=== PATIENT | female | born 1990 | race Caucasian/White ===

== ENCOUNTER 2017-02-22 10:38 | Emergency (ER) | payer OTHER ==
[2017-02-22 11:43] LABS: Basophils % (Auto) 0.3 % (0.0-1.8); Eosinophils % (Auto) 0.2 % (0.0-4.3); Hematocrit 42.3 % (30.3-42.9); Hemoglobin 14.3 gm/dl (10.1-14.3); Mean Corpuscular HGB Conc 34 % (30-34); Mean Corpuscular Hemoglobin 29 pg (28-32); Mean Corpuscular Volume 86 fl (79-97); Platelet Count 167 K/mm3 (140-440); Red Blood Count 4.94 M/mm3 (3.65-5.03); Red Cell Distribution Width 13.8 % (13.2-15.2); White Blood Count 9.5 K/mm3 (4.5-11.0)
[2017-02-22 12:37] LABS: Bacteria,Urine 1+ /HPF (Negative); Bilirubin,Urine NEG (Negative); Blood,Urine NEG (Negative); Ketones,Urine TR mg/dL (Negative); Leukocyte Esterase,Urine NEG (Negative); Mucus,Urine FEW /HPF; Nitrite,Urine NEG (Negative); Protein,Urine <15 mg/dL mg/dL (Negative); Urobilinogen,Urine < 2.0 mg/dL (<2.0); WBC,Urine < 1.0 /HPF (0.0-6.0)
[2017-02-22] MEDS ORDERED: ZOFRAN ODT PO ONE (17:42)
[2017-02-22] MEDS ORDERED: ZOFRAN ODT ONE (17:45)
--- NOTE | 2017-02-22 19:46 | Emergency Department Report ---
HPI - General Chief Complaint: Vaginal Bleeding Time Seen by Provider: 02/22/17 19:27 - HPI HPI: Room 26 The pt is a 26 y/o F p/w a CC of Vag bleeding. The pt states she has a positive home UPT approx 2 months ago. Pt has not seen an escrow manager yet. Today the pt developed SP pain and light vaginal bleeding. pt denies other complaints ED Past Medical Hx - Past Medical History Hx Asthma: Yes (as a child) - Surgical History Additional Surgical History: C SECTION - Family History Family history: no significant - Social History Smoking Status: Current Some Day Smoker (rare) Substance Use Type: Alcohol (occ) - Medications Home Medications: Home Medications Medication Instructions Recorded Confirmed Last Taken Type Ferrous Sulfate [Feosol 325 MG tab] 325 mg PO BID #30 tablet 04/11/16 Unknown Rx Ibuprofen [Motrin 800 MG tab] 800 mg PO Q8HR PRN #30 tablet 04/11/16 Unknown Rx oxyCODONE /ACETAMINOPHEN [Percocet 1 tab PO Q6HR PRN #30 tablet 04/11/16 Unknown Rx 5/325] Ondansetron [Zofran ODT TAB] 8 mg PO Q8HR #30 tab.rapdis 02/22/17 Unknown Rx ED Review of Systems ROS: Stated complaint: ABNORMAL VAG BLEEDING Other details as noted in HPI Comment: All other systems reviewed and negative Constitutional: denies: chills, fever Eyes: denies: eye pain, eye discharge, vision change ENT: denies: ear pain, throat pain Respiratory: denies: cough, shortness of breath, wheezing Cardiovascular: denies: chest pain, palpitations Endocrine: no symptoms reported Gastrointestinal: abdominal pain. denies: nausea, vomiting Genitourinary: abnormal menses Musculoskeletal: denies: back pain, joint swelling, arthralgia Skin: denies: rash, lesions Neurological: denies: headache, weakness, paresthesias Psychiatric: denies: anxiety, depression Hematological/Lymphatic: denies: easy bleeding, easy bruising Physical Exam - Physical Exam Vital Signs: Vital Signs 02/22/17 02/22/17 02/22/17 11:08 15:42 17:45 Temperature 98 F 98.4 F Pulse Rate 82 78 74 Respiratory 18 16 18 Rate Blood Pressure 97/65 102/69 110/74 O2 Sat by Pulse 100 99 100 Oximetry Physical Exam: GEN: WD, WN M lying on stretcher not appearing to be in acute distress. HEENT: normocephalic, atraumatic PULM: CTA B CV: rrr, no m/r/g ABD: s, nd, mild discomfort to palp in the FLAVIO region. No ttp in lower abd Neuro: GCS 15 Ext: no deformity ED Course Vital Signs 02/22/17 02/22/17 02/22/17 11:08 15:42 17:45 Temperature 98 F 98.4 F Pulse Rate 82 78 74 Respiratory 18 16 18 Rate Blood Pressure 97/65 102/69 110/74 O2 Sat by Pulse 100 99 100 Oximetry ED Medical Decision Making - Lab Data Result diagrams: 02/22/17 11:13 Laboratory Tests 02/22/17 02/22/17 02/22/17 11:13 11:13 11:22 WBC 9.5 RBC 4.94 Hgb 14.3 Hct 42.3 MCV 86 MCH 29 MCHC 34 RDW 13.8 Plt Count 167 Lymph % (Auto) 16.1 [place] % (Auto) 7.2 Eos % (Auto) 0.2 Baso % (Auto) 0.3 Lymph # 1.5 [place] # 0.7 Eos # 0.0 Baso # 0.0 Seg Neutrophils % 76.2 H Seg Neutrophils # 7.2 HCG, Quant 75804 H Urine Color Urine Turbidity Urine pH Ur Specific [place] Urine Protein Urine Glucose (UA) Urine Ketones Urine Blood Urine Nitrite Urine Bilirubin Urine Urobilinogen Ur Leukocyte Esterase Urine WBC (Auto) Urine RBC (Auto) U Epithel Cells (Auto) Urine Bacteria (Auto) Urine Mucus Blood Type O POSITIVE Antibody Screen Negative 02/22/17 02/22/17 12:15 18:16 WBC RBC Hgb Hct MCV MCH MCHC RDW Plt Count Lymph % (Auto) [place] % (Auto) Eos % (Auto) Baso % (Auto) Lymph # [place] # Eos # Baso # Seg Neutrophils % Seg Neutrophils # HCG, Quant Urine Color Yellow Urine Turbidity Clear Urine pH 6.0 Ur Specific [place] 1.010 Urine Protein <15 mg/dl Urine Glucose (UA) Neg Urine Ketones Tr Urine Blood Neg Urine Nitrite Neg Urine Bilirubin Neg Urine Urobilinogen < 2.0 Ur Leukocyte Esterase Neg Urine WBC (Auto) < 1.0 Urine RBC (Auto) 1.0 U Epithel Cells (Auto) 2.0 Urine Bacteria (Auto) 1+ Urine Mucus Few Blood Type O POSITIVE Antibody Screen Negative - Radiology Data Radiology results: report reviewed (pelvic u/s), image reviewed (pelvic u/s) pelvic u/s (read by rad)- single IUP at 6w 2d - Differential Diagnosis threatened , ectopic preg, spont Critical care attestation.: If time is entered above; I have spent that time in minutes in the direct care of this critically ill patient, excluding procedure time. ED Disposition Clinical Impression: Threatened Disposition: DC- TO HOME OR SELFCARE Is pt being admited?: No Does the pt Need Aspirin: No Condition: Stable Instructions: Threatened Miscarriage (ED) Prescriptions: Ondansetron [Zofran ODT TAB] 8 mg PO Q8HR #30 tab.rapdis Referrals: PRIMARY CARE, [Primary Care Provider] - 3-5 Days NURYS CHIN MD [Staff Physician] - INDY (Dr Chin is an Network Services Project Manager. please follow up with him for further evaluation) Time of Disposition: 21:20
--- NOTE | 2017-02-22 21:05 | Ultrasound Report ---
FINAL REPORT PROCEDURE: US OB \T\lt; = 14 WEEKS FETUS TECHNIQUE: Real-time transabdominal sonography of the uterus, placenta, amniotic fluid, adnexa, and fetus was performed with image documentation. Measurements were obtained to determine age/size. M-mode Doppler was used to document heartbeat. CPT 49058 HISTORY: vaginal bleeding COMPARISON: No prior studies are available for comparison. FINDINGS: CRL: 5.5 mm, which corresponds to a gestational age of: 6 weeks, 2 days. Yolk Sac: Normal. Embryonic Cardiac Activity: 123 beats per minute Gestational Sac: There is a small 2-3 millimeter hypoechoic area adjacent to the gestational sac, which may be a tiny subchorionic hemorrhage. Amniotic fluid: Normal. Right Ovary: Normal. Left Ovary: Normal. Estimated delivery date: 10/16/2017 IMPRESSION: Single live intrauterine gestation at approximately 6 weeks 2 days. EDC by US 10/16/2017
--- NOTE | 2017-02-22 21:27 | Ultrasound Report ---
FINAL REPORT PROCEDURE: US OB TRANSVAGINAL TECHNIQUE: Real-time transvaginal sonography of the uterus, placenta, amniotic fluid, adnexa, and fetus was performed with image documentation. Measurements were obtained to determine age/size. M-mode Doppler was used to document heartbeat. CPT 84989 HISTORY: vaginal bleeding COMPARISON: No prior studies are available for comparison. FINDINGS: CRL: 5.5mm, which corresponds to a gestational age of: 6weeks, 2 days. Yolk Sac: Normal. Embryonic Cardiac Activity: 123 beats per minute Gestational Sac: Crescentic 2 millimeter hypoechoic area adjacent to the gestational sac is likely a small subchorionic hemorrhage Right Ovary: Normal. Left Ovary: Normal. Estimated delivery date: 10/16/2017 Comment: Complete anatomic survey at 18-20 weeks suggested. IMPRESSION: 1. Single living intrauterine gestation at approximately 6 weeks 2 days 2. EDC by US 10/16/2017.
[2017-02-22 21:57] VITALS: BP 118/74
== END 2017-02-22 21:57 | disposition home or self-care (01) ==
LOC: ED 10:38
DX: O20.0 Threatened abortion (principal); F17.200 Nicotine dependence, unspecified, uncomplicated; J45.909 Unspecified asthma, uncomplicated
CPT/HCPCS: 36415; 76801; 76817; 81001; 84702; 85025; 86850; 86900; 86901; Q0162

== ENCOUNTER 2017-05-05 16:39 | Emergency (ER) | payer OTHER ==
[2017-05-05 17:38] LABS: Hematocrit 34.6 % (30.3-42.9); Hemoglobin 11.9 gm/dl (10.1-14.3); Mean Corpuscular HGB Conc 35 % (30-34); Mean Corpuscular Hemoglobin 29 pg (28-32); Mean Corpuscular Volume 85 fl (79-97); Platelet Count 264 K/mm3 (140-440); Red Blood Count 4.09 M/mm3 (3.65-5.03); Red Cell Distribution Width 13.2 % (13.2-15.2); White Blood Count 16.5 K/mm3 (4.5-11.0)
[2017-05-05 17:57] LABS: Alanine Aminotransferase 10 units/L (7-56); Albumin 3.2 g/dL (3.9-5); Alkaline Phosphatase 103 units/L (35-129); Anion Gap 17 mmol/L; BUN/Creatinine Ratio 13; Blood Urea Nitrogen 4 mg/dL (7-17); Calcium 8.7 mg/dL (8.4-10.2); Carbon Dioxide 22 mmol/L (22-30); Chloride 100.6 mmol/L (98-107); Glucose 97 mg/dL (65-100); Potassium 3.6 mmol/L (3.6-5.0); Sodium 136 mmol/L (137-145); Total Protein 6.4 g/dL (6.3-8.2)
[2017-05-05 18:05] LABS: Bacteria,Urine 1+ /HPF (Negative); Bilirubin,Urine NEG (Negative); Blood,Urine NEG (Negative); Ketones,Urine NEG (Negative); Leukocyte Esterase,Urine NEG (Negative); Nitrite,Urine NEG (Negative); Protein,Urine <15 mg/dL mg/dL (Negative); Urobilinogen,Urine < 2.0 mg/dL (<2.0)
[2017-05-05] MEDS ORDERED: ZOFRAN IV ONE (22:24)
[2017-05-05] MEDS ORDERED: NACL 0.9% 1000 ML 1,000 ML IV ONE (22:24)
[2017-05-05] MEDS ORDERED: TYLENOL PO ONE (22:25)
--- NOTE | 2017-05-05 22:30 | Emergency Department Report ---
ED Female HPI - General Chief complaint: Headache Stated complaint: PREG, HEADACHE, FEVER Time Seen by Provider: 05/05/17 21:58 Source: family, tire care manager Mode of arrival: Ambulatory Limitations: Language Barrier - History of Present Illness Initial comments: Patient is 27 years old female 15 weeks came today was nausea and vomiting. She said she woke up this morning with headache also. Patient denied fever abdominal pain or urinary symptoms she stated that she is not feeling the baby moving well today. She denied any vaginal pain or vaginal discharge no diarrhea. - Related Data Previous Rx's Medication Instructions Recorded Last Taken Type Ferrous Sulfate [Feosol 325 MG tab] 325 mg PO BID #30 tablet 04/11/16 Unknown Rx Ibuprofen [Motrin 800 MG tab] 800 mg PO Q8HR PRN #30 tablet 04/11/16 Unknown Rx oxyCODONE /ACETAMINOPHEN [Percocet 1 tab PO Q6HR PRN #30 tablet 04/11/16 Unknown Rx 5/325] Ondansetron [Zofran ODT TAB] 8 mg PO Q8HR #30 tab.rapdis 02/22/17 Unknown Rx Ondansetron [Zofran TAB] 4 mg PO Q8HR PRN #30 tablet 02/23/17 Unknown Rx Allergies Allergy/AdvReac Type Severity Reaction Status Date / Time No Known Allergies Allergy Verified 02/22/17 11:04 ED Review of Systems ROS: Stated complaint: PREG, HEADACHE, FEVER Other details as noted in HPI Comment: All other systems reviewed and negative Constitutional: denies: chills, fever Respiratory: denies: cough, shortness of breath, SOB with exertion Cardiovascular: denies: palpitations Gastrointestinal: nausea, vomiting. denies: abdominal pain, diarrhea, constipation, hematemesis, melena, hematochezia Genitourinary: denies: urgency, dysuria, frequency Neurological: headache. denies: weakness, numbness, paresthesias ED Past Medical Hx - Past Medical History Hx Hypertension: No Hx Congestive Heart Failure: No Hx Diabetes: No Hx Deep Vein Thrombosis: No Hx Renal Disease: No Hx Sickle Cell Disease: No Hx Seizures: No Hx Asthma: Yes (as a child) Hx COPD: No Hx HIV: No - Surgical History Additional Surgical History: C SECTION - Social History Smoking Status: Never Smoker Substance Use Type: None - Medications Home Medications: Home Medications Medication Instructions Recorded Confirmed Last Taken Type Ferrous Sulfate [Feosol 325 MG tab] 325 mg PO BID #30 tablet 04/11/16 Unknown Rx Ibuprofen [Motrin 800 MG tab] 800 mg PO Q8HR PRN #30 tablet 04/11/16 Unknown Rx oxyCODONE /ACETAMINOPHEN [Percocet 1 tab PO Q6HR PRN #30 tablet 04/11/16 Unknown Rx 5/325] Ondansetron [Zofran ODT TAB] 8 mg PO Q8HR #30 tab.rapdis 02/22/17 Unknown Rx Ondansetron [Zofran TAB] 4 mg PO Q8HR PRN #30 tablet 02/23/17 Unknown Rx ED Physical Exam - General Limitations: Language Barrier General appearance: alert, in no apparent distress - Head Head exam: Present: atraumatic, normocephalic, normal inspection - ENT ENT exam: Present: normal exam - Neck Neck exam: Present: normal inspection, full ROM. Absent: tenderness - Respiratory Respiratory exam: Present: normal lung sounds bilaterally. Absent: respiratory distress, wheezes, rales, rhonchi, accessory muscle use, decreased breath sounds - Cardiovascular Cardiovascular Exam: Present: tachycardia. Absent: systolic murmur, diastolic murmur - GI/Abdominal GI/Abdominal exam: Present: soft, normal bowel sounds, organomegaly. Absent: tenderness, guarding, rebound, rigid, mass, bruit, pulsatile mass, hernia - Extremities Exam Extremities exam: Present: normal inspection, normal capillary refill. Absent: pedal edema - Back Exam Back exam: Present: normal inspection. Absent: CVA tenderness (R), CVA tenderness (L) - Neurological Exam Neurological exam: Present: alert, oriented X3, CN II-XII intact, normal gait - Skin Skin exam: Present: warm, dry, intact ED Course Vital Signs 05/05/17 05/05/17 05/05/17 17:10 20:23 21:46 Temperature 98.6 F 98.2 F 97.9 F Pulse Rate 101 H 80 83 Respiratory 18 12 20 Rate Blood Pressure 100/56 98/59 Blood Pressure 93/57 [Right] O2 Sat by Pulse 100 100 100 Oximetry 05/05/17 05/05/17 05/06/17 22:08 23:04 00:24 Temperature 98.0 F Pulse Rate 85 Respiratory 20 20 20 Rate Blood Pressure Blood Pressure 107/70 [Right] O2 Sat by Pulse 100 99 Oximetry - Reevaluation(s) Reevaluation #1: 05/06/17 00:58 Patient stated that she is much better. No more nausea no vomiting. ED Medical Decision Making - Lab Data Result diagrams: 05/05/17 17:22 05/05/17 17:22 - Radiology Data Radiology results: report reviewed Pelvic/ ultrasound show 17 weeks into trying fetus viable, no complication Critical care attestation.: If time is entered above; I have spent that time in minutes in the direct care of this critically ill patient, excluding procedure time. ED Disposition Clinical Impression: Abdominal pain affecting , Vomiting affecting Disposition: DC-01 TO HOME OR SELFCARE Is pt being admited?: No Condition: Stable Instructions: Acute Nausea and Vomiting (ED) Referrals: PRIMARY CARE, [Primary Care Provider] - 3-5 Days
--- NOTE | 2017-05-06 00:05 | Ultrasound Report ---
FINAL REPORT PROCEDURE: US OB \T\gt; = 14 WEEKS FETUS TECHNIQUE: Real-time transabdominal sonography of the uterus, placenta, amniotic fluid, adnexa, and fetus was performed with image documentation. Measurements were obtained to determine age/size. M-mode Doppler was used to document heartbeat. CPT 31945 HISTORY: ABDOMINAL PAIN COMPARISON: No prior studies are available for comparison. FINDINGS: ADDITIONAL GESTATION: None. GENERAL: IUP: Single living intrauterine . Position: Cephalic Placental position: Anterior, without previa. Amniotic fluid volume: Normal. MATERNAL: Uterus: Within normal limits. Cervical length: 3.2 cm. Internal Os: Closed. FETUS: Heart rate and rhythm: 145 beats per minute and regular MEASUREMENTS: BPD: 3.38 centimeters corresponding to 16 weeks and 3 days HC: 13.0 centimeters corresponding to 16 weeks and 5 days AC: 11.2 centimeters corresponding to 17 weeks and 0 days FL: 2.3 centimeters corresponding to 17 weeks and 0 days Mean Gestational Age (composite criteria): 16 weeks and 6 days Estimated Weight: 177 grams grams. Estimated Due Date (earliest scan): 10/14/2017 IMPRESSION: Single live intrauterine gestation at 16 weeks and 6 days. Estimated due date: 10/14/2017.
[2017-05-06 00:25] VITALS: BP 107/70
== END 2017-05-06 01:36 | disposition home or self-care (01) ==
LOC: ED 16:39
DX: O21.9 Vomiting of pregnancy, unspecified (principal); O26.892 Other specified pregnancy related conditions, second trimester; R10.9 Unspecified abdominal pain; J45.909 Unspecified asthma, uncomplicated; Z3A.15 15 weeks gestation of pregnancy
CPT/HCPCS: 36415; 76805; 80053; 81001; 84702; 85027; 96361; 96374; 99284; J2405; J7030

== ENCOUNTER 2017-08-01 18:04 | Outpatient (CLI) | payer OTHER ==
[2017-08-01 18:19] VITALS: BP 99/59
--- NOTE | 2017-08-01 18:43 | Emergency Department Report ---
ED Fall HPI - General Chief Complaint: Fall Stated Complaint: FELL DWNSTAIRS 8 MTHS PREG BCK PAIN Time Seen by Provider: 08/01/17 18:36 Source: patient, family Mode of arrival: Ambulatory Limitations: Language Barrier (significant provided interpretation) - History of Present Illness Initial Comments: 27 yo female presents with fall. She is 28 5/7 weeks . JOE 10/19/2017. No care. She fell down 3 to 7 steps last night. She fell onto her left side. She has mild right upper and lower back pain. NO VB. decreased movement. No vaginal discharge. - Related Data Previous Rx's Medication Instructions Recorded Last Taken Type Ferrous Sulfate [Feosol 325 MG tab] 325 mg PO BID #30 tablet 04/11/16 Unknown Rx Ibuprofen [Motrin 800 MG tab] 800 mg PO Q8HR PRN #30 tablet 04/11/16 Unknown Rx oxyCODONE /ACETAMINOPHEN [Percocet 1 tab PO Q6HR PRN #30 tablet 04/11/16 Unknown Rx 5/325] Ondansetron [Zofran ODT TAB] 8 mg PO Q8HR #30 tab.rapdis 02/22/17 Unknown Rx Ondansetron [Zofran TAB] 4 mg PO Q8HR PRN #30 tablet 02/23/17 Unknown Rx Ondansetron [Zofran Odt] 4 mg PO Q8HR PRN #14 tab.rapdis 05/06/17 Unknown Rx Allergies Allergy/AdvReac Type Severity Reaction Status Date / Time No Known Allergies Allergy Verified 02/22/17 11:04 ED Review of Systems ROS: Stated complaint: FELL DWNSTAIRS 8 MTHS PREG BCK PAIN Other details as noted in HPI Comment: All other systems reviewed and negative Respiratory: denies: cough Cardiovascular: denies: chest pain Gastrointestinal: abdominal pain ED Past Medical Hx - Past Medical History Previous Medical History?: Yes Hx Hypertension: No Hx Congestive Heart Failure: No Hx Diabetes: No Hx Deep Vein Thrombosis: No Hx Renal Disease: No Hx Sickle Cell Disease: No Hx Seizures: No Hx Asthma: Yes (as a child) Hx COPD: No Hx HIV: No - Surgical History Past Surgical History?: Yes Additional Surgical History: C SECTION - Social History Smoking Status: Never Smoker Substance Use Type: None - Medications Home Medications: Home Medications Medication Instructions Recorded Confirmed Last Taken Type Ferrous Sulfate [Feosol 325 MG tab] 325 mg PO BID #30 tablet 04/11/16 Unknown Rx Ibuprofen [Motrin 800 MG tab] 800 mg PO Q8HR PRN #30 tablet 04/11/16 Unknown Rx oxyCODONE /ACETAMINOPHEN [Percocet 1 tab PO Q6HR PRN #30 tablet 04/11/16 Unknown Rx 5/325] Ondansetron [Zofran ODT TAB] 8 mg PO Q8HR #30 tab.rapdis 02/22/17 Unknown Rx Ondansetron [Zofran TAB] 4 mg PO Q8HR PRN #30 tablet 02/23/17 Unknown Rx Ondansetron [Zofran Odt] 4 mg PO Q8HR PRN #14 tab.rapdis 05/06/17 Unknown Rx ED Physical Exam - General Limitations: Language Barrier General appearance: alert, in no apparent distress - Head Head exam: Present: atraumatic, normocephalic - Eye Eye exam: Present: normal appearance - ENT ENT exam: Present: normal exam, mucous membranes moist - Neck Neck exam: Present: normal inspection. Absent: tenderness, meningismus - Respiratory Respiratory exam: Present: normal lung sounds bilaterally. Absent: respiratory distress, wheezes, rales, rhonchi - Cardiovascular Cardiovascular Exam: Present: regular rate, normal rhythm, normal heart sounds. Absent: systolic murmur, diastolic murmur, rubs, gallop - GI/Abdominal GI/Abdominal exam: Present: soft, normal bowel sounds. Absent: distended, tenderness, guarding, rebound - Extremities Exam Extremities exam: Present: normal inspection - Back Exam Back exam: Present: normal inspection - Neurological Exam Neurological exam: Present: alert, oriented X3 - Psychiatric Psychiatric exam: Present: normal affect, normal mood - Skin Skin exam: Present: warm, dry, intact, normal color. Absent: rash ED Course Vital Signs 08/01/17 18:11 Temperature 98.6 F Pulse Rate 91 H Respiratory 16 Rate Blood Pressure 99/59 O2 Sat by Pulse 100 Oximetry ED Medical Decision Making - Medical Decision Making 27 yo female presents s/p fall down stairs. No evidence of severe trauma. Decreased movement. Will need toco monitoring. She is discharged from ED. She will be evaluated in L&D. Critical care attestation.: If time is entered above; I have spent that time in minutes in the direct care of this critically ill patient, excluding procedure time. ED Disposition Clinical Impression: Fall, Back pain, Disposition: DC-01 TO HOME OR SELFCARE Is pt being admited?: No Does the pt Need Aspirin: No Condition: Stable Instructions: (ED) Referrals: [facility] [Provider Group] - 3-5 Days Time of Disposition: 18:44
[2017-08-01] MEDS ORDERED: LACTATED RINGERS 500 ML IV ONE (20:42)
== END 2017-08-01 21:15 | disposition home or self-care (01) ==
LOC: TRG 18:04 → ED 18:04 → EDSTATUS 20:15 → TRG 20:17
PROVIDERS: ATTEND Obstetrics & Gynecology
DX: O26.893 Other specified pregnancy related conditions, third trimester (principal); M54.9 Dorsalgia, unspecified; W10.9XXA Fall (on) (from) unspecified stairs and steps, initial encounter; Z3A.28 28 weeks gestation of pregnancy; Y93.89 Activity, other specified; Y92.89 Other specified places as the place of occurrence of the external cause; Y99.8 Other external cause status
CPT/HCPCS: 59025